=== PATIENT | male | born 1960 | race Caucasian/White ===

== ENCOUNTER 2017-12-22 11:47 | Emergency (ER) | payer MEDICARE ==
[~2017-12-22] VITALS: Ht 172.7 cm; Wt 75.0 kg
[2017-12-22] MEDS ORDERED: SODIUM CHLORIDE 0.9% 1,000 ML IV ONE (12:32)
[2017-12-22] MEDS ORDERED: LORAZEPAM 2MG/ML CPJ IV ONE (12:45)
[2017-12-22 12:51] LABS: BASOPHILS % 0.5 % (0.0-2.0); EOSINOPHILS % 0.8 % (0.0-5.0); HEMATOCRIT. 43.9 % (42.0-52.0); HEMOGLOBIN. 15.3 g/dL (14.0-18.0); LYMPHOCYTES % 19.2 % (20.0-50.0); MEAN CORPUSCULAR HEMOGLOBIN 30.9 pg (28.0-32.0); MEAN CORPUSCULAR VOLUME 88.8 fL (80.0-94.0); MEAN PLATELET VOLUME 7.9 fl (7.4-10.4); MONOCYTES % 4.5 % (2.0-8.0); PLATELET 228 x1000/uL (130-400); RED BLOOD CELL COUNT 4.94 mill/uL (4.7-6.1); RED CELL DISTRIBUTION WIDTH 13.4 % (11.6-14.6)
[2017-12-22 12:58] LABS: CHLORIDE 104 mEq/L (98-107)
[2017-12-22 12:59] LABS: PROTHROMBIN TIME 10.7 sec (9.4-11.6)
[2017-12-22 13:02] LABS: ETHANOL BLOOD < 10 mg/dL
[2017-12-22 13:07] LABS: CREATINE KINASE 66 IU/L (39-308)
[2017-12-22 14:19] LABS: CLARITY URINE CLEAR (CLEAR); COLOR URINE YELLOW (YELLOW); KETONES URINE NEGATIVE (NEGATIVE); LEUKOCYTE ESTERASE URINE NEGATIVE (NEGATIVE); NITRITE URINE NEGATIVE (NEGATIVE); OCCULT BLOOD URINE NEGATIVE (NEGATIVE); PH URINE 8.5 (4.5-8.0); PROTEIN URINE NEGATIVE (NEGATIVE); SPECIFIC GRAVITY URINE 1.007 (1.005-1.030); UROBILINOGEN URINE 0.2 E.U./dL (0.2-1.0)
[2017-12-22 14:33] LABS: *AMPHETAMINES SCREEN URINE NEGATIVE (NEGATIVE); *BARBITURATES SCREEN URINE NEGATIVE (NEGATIVE); *BENZODIAZEPINES SCREEN URINE NEGATIVE (NEGATIVE); *COCAINE SCREEN URINE NEGATIVE (NEGATIVE)
[2017-12-22 14:34] LABS: CANNABINOID URINE SCREEN NEGATIVE (NEGATIVE); METHADONE URINE SCREEN NEGATIVE (NEGATIVE); OPIATES URINE SCREEN NEGATIVE (NEGATIVE); PHENCYCLIDINE URINE SCREEN NEGATIVE (NEGATIVE)
[2017-12-23 13:56] VITALS: BP 135/93
== END 2017-12-23 14:34 ==
LOC: ER 12:04
DX: F32.9 Major depressive disorder, single episode, unspecified (principal); R53.1 Weakness; R53.83 Other fatigue; R20.0 Anesthesia of skin; R51 Headache; R06.02 Shortness of breath; R10.84 Generalized abdominal pain; F41.9 Anxiety disorder, unspecified; I25.10 Atherosclerotic heart disease of native coronary artery without angina pectoris; I10 Essential (primary) hypertension; I25.2 Old myocardial infarction; Z95.5 Presence of coronary angioplasty implant and graft
CPT/HCPCS: 36415; 70450; 71045; 80053; 80305; 81003; 82550; 83605; 84484; 85025; 85610; 93005; 96361; 96374; 99285; G0482; J2060; J7030

== ENCOUNTER 2021-08-16 10:21 | Inpatient (IN) | payer MEDICAID, MEDICARE ==
[~2021-08-16] VITALS: Ht 172.7 cm; Wt 71.2 kg
[2021-08-16] MEDS ORDERED: ASPIRIN 325MG EC TABLET PO NR (10:45)
[2021-08-16] MEDS ORDERED: ASPIRIN 325MG TABLET ONE (10:57)
[2021-08-16] MEDS ORDERED: MIDAZOLAM HCL 2 MG/2 ML VIAL ONE (10:59)
[2021-08-16] MEDS ORDERED: FENTANYL CITRATE/PF 50MCG/ML 2ML VIAL ONE (11:00)
[2021-08-16] MEDS ORDERED: VERAPAMIL HCL 2.5 MG/1 ML 2ML VIAL IV ONE (11:00)
[2021-08-16] MEDS ORDERED: LIDOCAINE HCL 1% 10 MG/ML 10ML VIAL ONE (11:00)
[2021-08-16] MEDS ORDERED: HEPARIN 1000 UNITS/ML 10ML ONE ×2 (11:00→11:57)
[2021-08-16] MEDS ORDERED: IODIXANOL 320MG/ML 100 ML BOTTLE IV ONE ×2 (11:01→11:41)
[2021-08-16] MEDS ORDERED: IOHEXOL-300 100 ML BOTTLE ONE ×2 (11:01→11:40)
[2021-08-16 11:03] LABS: BASOPHILS % 0.5 % (0.0-2.0); EOSINOPHILS % 0.6 % (0.0-5.0); HEMATOCRIT. 42.2 % (42.0-52.0); HEMOGLOBIN. 14.2 g/dL (14.0-18.0); LYMPHOCYTES % 16.8 % (20.0-50.0); MEAN CORPUSCULAR VOLUME 89.2 fL (80.0-94.0); MEAN PLATELET VOLUME 7.8 fl (7.4-10.4); MONOCYTES % 4.7 % (2.0-8.0); NEUTROPHILS % 77.4 % (40.0-76.0); PLATELET 212 x1000/uL (130-400); RED BLOOD CELL COUNT 4.73 mill/uL (4.7-6.1); RED CELL DISTRIBUTION WIDTH 13.8 % (11.6-14.6)
[2021-08-16 11:07] LABS: CHLORIDE 106 mEq/L (98-107)
[2021-08-16] MEDS ORDERED: CLOPIDOGREL 75MG TABLET ONE (12:03)
[2021-08-16] MEDS ORDERED: ATROPINE SULFATE 1MG/10ML SYR IV PRN (13:30)
[2021-08-16] MEDS ORDERED: ACETAMINOPHEN 325MG TABLET PO PRN ×2 (13:30→17:30)
[2021-08-16 13:57] VITALS: BP 102/60
[2021-08-16 14:00] VITALS: BP 100/65
[2021-08-16 16:00] VITALS: BP 125/60
[2021-08-16] MEDS ORDERED: DIPHENHYDRAMINE 50MG/ML VIAL IV PRN (17:30)
[2021-08-16] MEDS ORDERED: GUAIFENESIN 200MG/10ML SUGAR FREE UDC PO PRN (17:30)
[2021-08-16] MEDS ORDERED: ONDANSETRON HCL 4MG/2ML INJ IV PRN (17:30)
[2021-08-16] MEDS ORDERED: CLONIDINE 0.1MG TABLET PO PRN (17:30)
[2021-08-16] MEDS ORDERED: IPRATROPIUM/ALBUTEROL 0.5-3(2.5)MG/3ML NEB HHN PRN (17:30)
[2021-08-16] MEDS ORDERED: MORPHINE SULFATE 2 MG/ML CPJ (NOT FOR IM USE) IV PRN (17:30)
[2021-08-16] MEDS ORDERED: HYDRALAZINE 20MG/ML VIAL IV PRN (17:30)
[2021-08-16] MEDS ORDERED: DOCUSATE SODIUM 100MG CAPSULE PO PRN (17:30)
[2021-08-16] MEDS ORDERED: MAGNESIUM/ALUMINUM HYDROXIDE/SIMETHICONE 30ML UDC PO PRN (17:30)
[2021-08-16] MEDS ORDERED: LORAZEPAM 2MG/ML CPJ IV PRN (17:30)
[2021-08-16 17:52] VITALS: BP 105/68
[2021-08-16 20:00] VITALS: BP 95/63
[2021-08-16] MEDS: ATORVASTATIN CALCIUM 40MG TABLET PO SCH (20:30)
[2021-08-16] MEDS: SODIUM CHLORIDE 0.9% INJ 3ML FLUSH IVF SCH (21:36)
[2021-08-16 22:00] VITALS: BP 97/55
[2021-08-17] VITALS (13 sets, daily range): BP systolic 92–134; BP diastolic 61–85
[2021-08-17] MEDS: SODIUM CHLORIDE 0.9% INJ 3ML FLUSH IVF SCH ×3 (05:15→21:34)
[2021-08-17] MEDS: ASPIRIN 81MG TABLET PO SCH (08:14)
[2021-08-17] MEDS: CLOPIDOGREL 75MG TABLET PO SCH (08:14)
[2021-08-17 09:03] LABS: BASOPHILS % 0.3 % (0.0-2.0); EOSINOPHILS % 0.8 % (0.0-5.0); HEMOGLOBIN. 13.3 g/dL (14.0-18.0); MEAN CORPUSCULAR HEMOGLOBIN 30.8 pg (28.0-32.0); MEAN CORPUSCULAR VOLUME 90.3 fL (80.0-94.0); MEAN PLATELET VOLUME 8.3 fl (7.4-10.4); MONOCYTES % 5.3 % (2.0-8.0); NEUTROPHILS % 77.6 % (40.0-76.0); PLATELET 208 x1000/uL (130-400); RED BLOOD CELL COUNT 4.31 mill/uL (4.7-6.1); RED CELL DISTRIBUTION WIDTH 14.1 % (11.6-14.6)
[2021-08-17 09:09] LABS: CHLORIDE 107 mEq/L (98-107)
[2021-08-17] MEDS ORDERED: NALOXONE HCL 0.4MG/ML VIAL IV PRN (12:00)
[2021-08-17] MEDS: HYDROCODONE/ACETAMINOPHEN 5/325MG TABLET PO PRN (13:43)
[2021-08-17] MEDS: ATORVASTATIN CALCIUM 40MG TABLET PO SCH (21:31)
[2021-08-18] VITALS (12 sets, daily range): BP systolic 90–111; BP diastolic 49–74
[2021-08-18] MEDS: SODIUM CHLORIDE 0.9% INJ 3ML FLUSH IVF SCH ×3 (06:36→21:39)
[2021-08-18] MEDS: CLOPIDOGREL 75MG TABLET PO SCH (08:29)
[2021-08-18] MEDS: ASPIRIN 81MG TABLET PO SCH (08:29)
[2021-08-18] MEDS: ATORVASTATIN CALCIUM 40MG TABLET PO SCH (21:34)
[2021-08-19] VITALS (24 sets, daily range): BP systolic 94–127; BP diastolic 48–79
[2021-08-19] MEDS: SODIUM CHLORIDE 0.9% INJ 3ML FLUSH IVF SCH ×3 (05:50→21:18)
[2021-08-19 06:53] LABS: BASOPHILS % 0.5 % (0.0-2.0); EOSINOPHILS % 1.4 % (0.0-5.0); HEMATOCRIT. 42.8 % (42.0-52.0); HEMOGLOBIN. 14.7 g/dL (14.0-18.0); LYMPHOCYTES % 18.3 % (20.0-50.0); MEAN CORPUSCULAR HEMOGLOBIN 30.7 pg (28.0-32.0); MEAN CORPUSCULAR VOLUME 89.8 fL (80.0-94.0); MEAN PLATELET VOLUME 7.9 fl (7.4-10.4); MONOCYTES % 6.1 % (2.0-8.0); NEUTROPHILS % 73.7 % (40.0-76.0); PLATELET 245 x1000/uL (130-400); RED BLOOD CELL COUNT 4.77 mill/uL (4.7-6.1); RED CELL DISTRIBUTION WIDTH 13.8 % (11.6-14.6)
[2021-08-19 07:39] LABS: CHLORIDE 104 mEq/L (98-107)
[2021-08-19] MEDS ORDERED: LIDOCAINE HCL 1% 20ML VIAL (Pyxis) INJ ONE (08:49)
[2021-08-19] MEDS ORDERED: THROMBIN (BOVINE) 5000 UNITS/VIAL TOP ONE (08:50)
[2021-08-19] MEDS ORDERED: HEPARIN 100 UNITS/1 ML VIAL ONE (08:50)
[2021-08-19] MEDS ORDERED: BUPIVACAINE HCL/PF 0.5% (5MG/ML) 10ML ONE (08:51)
[2021-08-19] MEDS ORDERED: POLYMYXIN B SULFATE 500000 UNITS/VIAL ONE (08:52)
[2021-08-19] MEDS ORDERED: HEPARIN SODIUM 1,000 UNIT/1ML VIAL IV ONE (08:52)
[2021-08-19] MEDS ORDERED: FENTANYL CITRATE/PF 50MCG/ML 2ML VIAL ONE (12:28)
[2021-08-19] MEDS ORDERED: PROPOFOL 200MG/20ML VIAL IV ONE (12:28)
[2021-08-19] MEDS ORDERED: MIDAZOLAM HCL 2 MG/2 ML VIAL ONE (12:28)
[2021-08-19] MEDS ORDERED: MORPHINE SULFATE 2 MG/ML CPJ (NOT FOR IM USE) IV PRN (12:45)
[2021-08-19] MEDS ORDERED: LABETALOL 5MG/ML SYR 20 MG/4 ML SYRINGE IV PRN (13:15)
[2021-08-19] MEDS ORDERED: HYDROMORPHONE HCL/PF 2MG/ML CPJ IV PRN (13:15)
[2021-08-19] MEDS ORDERED: MEPERIDINE HCL/PF 25MG/ML CPJ IV PRN (13:15)
[2021-08-19] MEDS ORDERED: ONDANSETRON HCL 4MG/2ML INJ IV PRN (13:15)
[2021-08-19] MEDS ORDERED: BACITRACIN 15GM TUBE TOP ONE (13:17)
[2021-08-19] MEDS ORDERED: DEXAMETHASONE 4MG/ML 1ML VIAL ONE (13:28)
[2021-08-19] MEDS: ASPIRIN 81MG TABLET PO SCH (15:06)
[2021-08-19] MEDS: CLOPIDOGREL 75MG TABLET PO SCH (15:06)
[2021-08-19] MEDS: HYDROCODONE/ACETAMINOPHEN 5/325MG TABLET PO PRN (15:56)
[2021-08-19] MEDS: ATORVASTATIN CALCIUM 40MG TABLET PO SCH (21:18)
[2021-08-20] VITALS (15 sets, daily range): BP systolic 89–112; BP diastolic 58–70
[2021-08-20] MEDS: SODIUM CHLORIDE 0.9% INJ 3ML FLUSH IVF SCH ×2 (05:42→20:59)
[2021-08-20 07:41] LABS: BASOPHILS % 0.3 % (0.0-2.0); EOSINOPHILS % 0.2 % (0.0-5.0); HEMATOCRIT. 39.3 % (42.0-52.0); HEMOGLOBIN. 13.4 g/dL (14.0-18.0); LYMPHOCYTES % 12.8 % (20.0-50.0); MEAN CORPUSCULAR VOLUME 91.4 fL (80.0-94.0); MEAN PLATELET VOLUME 8.1 fl (7.4-10.4); NEUTROPHILS % 81.7 % (40.0-76.0); PLATELET 243 x1000/uL (130-400); RED CELL DISTRIBUTION WIDTH 13.7 % (11.6-14.6)
[2021-08-20 07:42] LABS: CHLORIDE 105 mEq/L (98-107)
[2021-08-20] MEDS: CLOPIDOGREL 75MG TABLET PO SCH (07:57)
[2021-08-20] MEDS: ASPIRIN 81MG TABLET PO SCH (07:57)
[2021-08-20] MEDS: ENOXAPARIN 40MG/0.4ML SYR SUBCUT SCH (07:58)
[2021-08-20] MEDS ORDERED: ASPI-1497 PO (16:31)
[2021-08-20] MEDS ORDERED: ATOR40TA70 PO (16:32)
[2021-08-20] MEDS ORDERED: CLOP75TA33 PO (16:32)
[2021-08-20] MEDS ORDERED: DIVA500T3 PO (17:52)
[2021-08-20] MEDS ORDERED: TRAZ-252 PO (17:53)
[2021-08-20] MEDS ORDERED: ESCI5SOL2 PO (17:54)
[2021-08-20] MEDS ORDERED: CARV3.1242 PO (17:54)
[2021-08-20] MEDS ORDERED: NON FORMULARY PATIENT HOME MED XX SCH (18:15)
[2021-08-20] MEDS: ESCITALOPRAM 5 MG PO SCH (20:06)
[2021-08-20] MEDS: ATORVASTATIN CALCIUM 40MG TABLET PO SCH (20:56)
[2021-08-20] MEDS: DIVALPROEX SODIUM 500MG DR TABLET PO SCH (20:57)
[2021-08-20] MEDS ORDERED: TRAZODONE HCL 50MG TABLET PO SCH (21:00)
[2021-08-21] VITALS (8 sets, daily range): BP systolic 94–106; BP diastolic 57–68
[2021-08-21] MEDS: SODIUM CHLORIDE 0.9% INJ 3ML FLUSH IVF SCH ×2 (06:25→21:35)
[2021-08-21] MEDS: ASPIRIN 81MG TABLET PO SCH (08:07)
[2021-08-21] MEDS: CLOPIDOGREL 75MG TABLET PO SCH (08:07)
[2021-08-21] MEDS: DIVALPROEX SODIUM 500MG DR TABLET PO SCH ×2 (08:07→21:37)
[2021-08-21] MEDS: ENOXAPARIN 40MG/0.4ML SYR SUBCUT SCH (08:08)
[2021-08-21] MEDS: ESCITALOPRAM 5 MG PO SCH (08:08)
[2021-08-21] MEDS ORDERED: CITALOPRAM HYDROBROMIDE 10MG TABLET PO SCH (10:30)
[2021-08-21] MEDS: TRAZODONE HCL 50MG TABLET PO SCH (21:36)
[2021-08-21] MEDS: ATORVASTATIN CALCIUM 40MG TABLET PO SCH (21:36)
[2021-08-22] VITALS (7 sets, daily range): BP systolic 94–118; BP diastolic 60–79
[2021-08-22] MEDS: SODIUM CHLORIDE 0.9% INJ 3ML FLUSH IVF SCH ×3 (06:33→22:17)
[2021-08-22] MEDS: DIVALPROEX SODIUM 500MG DR TABLET PO SCH ×2 (09:54→20:40)
[2021-08-22] MEDS: CLOPIDOGREL 75MG TABLET PO SCH (09:54)
[2021-08-22] MEDS: ASPIRIN 81MG TABLET PO SCH (09:54)
[2021-08-22] MEDS: ENOXAPARIN 40MG/0.4ML SYR SUBCUT SCH (09:55)
[2021-08-22] MEDS: ESCITALOPRAM 5 MG PO SCH (09:55)
[2021-08-22] MEDS: ATORVASTATIN CALCIUM 40MG TABLET PO SCH (20:40)
[2021-08-22] MEDS: TRAZODONE HCL 50MG TABLET PO SCH (20:40)
[2021-08-23] VITALS: BP 94/68
[2021-08-23 04:00] VITALS: BP 105/63
[2021-08-23] MEDS: SODIUM CHLORIDE 0.9% INJ 3ML FLUSH IVF SCH ×2 (05:38→21:30)
[2021-08-23 08:00] VITALS: BP 99/68
[2021-08-23] MEDS: DIVALPROEX SODIUM 500MG DR TABLET PO SCH ×2 (10:10→21:30)
[2021-08-23] MEDS: ENOXAPARIN 40MG/0.4ML SYR SUBCUT SCH (10:10)
[2021-08-23] MEDS: ASPIRIN 81MG TABLET PO SCH (10:10)
[2021-08-23] MEDS: CLOPIDOGREL 75MG TABLET PO SCH (10:10)
[2021-08-23] MEDS: ESCITALOPRAM 5 MG PO SCH (10:10)
[2021-08-23 12:00] VITALS: BP 104/64
[2021-08-23 16:00] VITALS: BP 108/66
[2021-08-23 20:00] VITALS: BP 104/61
[2021-08-23] MEDS: ATORVASTATIN CALCIUM 40MG TABLET PO SCH (21:30)
[2021-08-23] MEDS: TRAZODONE HCL 50MG TABLET PO SCH (21:30)
[2021-08-24] VITALS (7 sets, daily range): BP systolic 93–102; BP diastolic 57–62
[2021-08-24] MEDS: SODIUM CHLORIDE 0.9% INJ 3ML FLUSH IVF SCH ×3 (05:32→20:46)
[2021-08-24] MEDS: DIVALPROEX SODIUM 500MG DR TABLET PO SCH ×2 (08:22→20:46)
[2021-08-24] MEDS: ESCITALOPRAM 5 MG PO SCH (08:22)
[2021-08-24] MEDS: ASPIRIN 81MG TABLET PO SCH (08:22)
[2021-08-24] MEDS: CLOPIDOGREL 75MG TABLET PO SCH (08:22)
[2021-08-24] MEDS: ENOXAPARIN 40MG/0.4ML SYR SUBCUT SCH (09:36)
[2021-08-24] MEDS: ATORVASTATIN CALCIUM 40MG TABLET PO SCH (20:46)
[2021-08-24] MEDS: TRAZODONE HCL 50MG TABLET PO SCH (20:46)
[2021-08-25] VITALS: BP 98/67
[2021-08-25 04:00] VITALS: BP 108/68
[2021-08-25] MEDS: SODIUM CHLORIDE 0.9% INJ 3ML FLUSH IVF SCH ×3 (06:38→21:21)
[2021-08-25 08:00] VITALS: BP 105/64
[2021-08-25] MEDS: DIVALPROEX SODIUM 500MG DR TABLET PO SCH ×2 (08:28→21:21)
[2021-08-25] MEDS: CLOPIDOGREL 75MG TABLET PO SCH (08:28)
[2021-08-25] MEDS: ESCITALOPRAM 5 MG PO SCH (08:28)
[2021-08-25] MEDS: ASPIRIN 81MG TABLET PO SCH (08:28)
[2021-08-25] MEDS: ENOXAPARIN 40MG/0.4ML SYR SUBCUT SCH (08:28)
[2021-08-25 12:00] VITALS: BP 103/71
[2021-08-25 16:00] VITALS: BP 100/67
[2021-08-25 20:00] VITALS: BP 100/58
[2021-08-25] MEDS: ATORVASTATIN CALCIUM 40MG TABLET PO SCH (21:21)
[2021-08-25] MEDS: TRAZODONE HCL 50MG TABLET PO SCH (21:21)
[2021-08-26] VITALS: BP 95/65
[2021-08-26 04:00] VITALS: BP 103/64
[2021-08-26] MEDS: SODIUM CHLORIDE 0.9% INJ 3ML FLUSH IVF SCH ×3 (06:00→21:16)
[2021-08-26 07:44] VITALS: BP 100/64
[2021-08-26] MEDS: DIVALPROEX SODIUM 500MG DR TABLET PO SCH ×2 (08:17→21:16)
[2021-08-26] MEDS: ENOXAPARIN 40MG/0.4ML SYR SUBCUT SCH (08:17)
[2021-08-26] MEDS: CLOPIDOGREL 75MG TABLET PO SCH (08:17)
[2021-08-26] MEDS: ASPIRIN 81MG TABLET PO SCH (08:17)
[2021-08-26] MEDS: ESCITALOPRAM 5 MG PO SCH (08:48)
[2021-08-26 11:31] VITALS: BP 110/70
[2021-08-26 17:20] VITALS: BP 103/64
[2021-08-26 20:00] VITALS: BP 105/68
[2021-08-26] MEDS: TRAZODONE HCL 50MG TABLET PO SCH (21:16)
[2021-08-26] MEDS: ATORVASTATIN CALCIUM 40MG TABLET PO SCH (21:16)
[2021-08-27] VITALS: BP 97/59
[2021-08-27 04:00] VITALS: BP 116/65
[2021-08-27] MEDS: SODIUM CHLORIDE 0.9% INJ 3ML FLUSH IVF SCH ×2 (06:31→12:17)
[2021-08-27 06:41] LABS: BASOPHILS % 0.6 % (0.0-2.0); HEMATOCRIT. 37.1 % (42.0-52.0); HEMOGLOBIN. 12.9 g/dL (14.0-18.0); LYMPHOCYTES % 23.4 % (20.0-50.0); MEAN CORPUSCULAR HEMOGLOBIN 31.4 pg (28.0-32.0); MEAN CORPUSCULAR VOLUME 90.5 fL (80.0-94.0); MEAN PLATELET VOLUME 8.4 fl (7.4-10.4); MONOCYTES % 8.4 % (2.0-8.0); NEUTROPHILS % 63.6 % (40.0-76.0); PLATELET 291 x1000/uL (130-400); RED CELL DISTRIBUTION WIDTH 13.8 % (11.6-14.6)
[2021-08-27 08:00] VITALS: BP 111/67
[2021-08-27 08:20] LABS: CHLORIDE 106 mEq/L (98-107)
[2021-08-27] MEDS: DIVALPROEX SODIUM 500MG DR TABLET PO SCH ×2 (09:54→21:08)
[2021-08-27] MEDS: ASPIRIN 81MG TABLET PO SCH (09:54)
[2021-08-27] MEDS: CLOPIDOGREL 75MG TABLET PO SCH (09:54)
[2021-08-27] MEDS: ESCITALOPRAM 5 MG PO SCH (09:55)
[2021-08-27] MEDS: ENOXAPARIN 40MG/0.4ML SYR SUBCUT SCH (09:55)
[2021-08-27 12:00] VITALS: BP 101/59
[2021-08-27] MEDS ORDERED: SODIUM POLYSTYRENE SULFONATE 15 G/60 ML BOT PO SCH (15:00)
[2021-08-27 16:00] VITALS: BP 110/65
[2021-08-27 20:00] VITALS: BP 101/66
[2021-08-27] MEDS: ATORVASTATIN CALCIUM 40MG TABLET PO SCH (21:08)
[2021-08-27] MEDS: TRAZODONE HCL 50MG TABLET PO SCH (21:08)
[2021-08-28] VITALS (7 sets, daily range): BP systolic 100–113; BP diastolic 63–70
[2021-08-28] MEDS: ASPIRIN 81MG TABLET PO SCH (08:57)
[2021-08-28] MEDS: ENOXAPARIN 40MG/0.4ML SYR SUBCUT SCH (08:57)
[2021-08-28] MEDS: CLOPIDOGREL 75MG TABLET PO SCH (08:57)
[2021-08-28] MEDS: DIVALPROEX SODIUM 500MG DR TABLET PO SCH ×2 (08:57→21:12)
[2021-08-28] MEDS: CITALOPRAM HYDROBROMIDE 10MG TABLET PO SCH (12:04)
[2021-08-28] MEDS: SODIUM CHLORIDE 0.9% INJ 3ML FLUSH IVF SCH ×2 (14:00→21:13)
[2021-08-28] MEDS ORDERED: HYDRALAZINE 10 MG in SODIUM CHLORIDE 0.9% 49.5 ML IV PRN (15:00)
[2021-08-28] MEDS: ATORVASTATIN CALCIUM 40MG TABLET PO SCH (21:12)
[2021-08-28] MEDS: TRAZODONE HCL 50MG TABLET PO SCH (21:12)
[2021-08-29] VITALS: BP 121/70
[2021-08-29 04:00] VITALS: BP 124/80
[2021-08-29] MEDS: SODIUM CHLORIDE 0.9% INJ 3ML FLUSH IVF SCH ×3 (05:53→21:43)
[2021-08-29 08:00] VITALS: BP 119/70
[2021-08-29] MEDS ORDERED: SODIUM POLYSTYRENE SULFONATE 15 G/60 ML BOT PO NR ×2 (08:45→10:00)
[2021-08-29] MEDS: CITALOPRAM HYDROBROMIDE 10MG TABLET PO SCH (09:02)
[2021-08-29] MEDS: ASPIRIN 81MG TABLET PO SCH (09:02)
[2021-08-29] MEDS: DIVALPROEX SODIUM 500MG DR TABLET PO SCH ×2 (09:02→21:43)
[2021-08-29] MEDS: ENOXAPARIN 40MG/0.4ML SYR SUBCUT SCH (09:03)
[2021-08-29] MEDS: CLOPIDOGREL 75MG TABLET PO SCH (09:03)
[2021-08-29 12:00] VITALS: BP 103/61
[2021-08-29 16:00] VITALS: BP 103/63
[2021-08-29 20:00] VITALS: BP 110/61
[2021-08-29] MEDS: TRAZODONE HCL 50MG TABLET PO SCH (21:43)
[2021-08-29] MEDS: ATORVASTATIN CALCIUM 40MG TABLET PO SCH (21:43)
[2021-08-30] VITALS: BP 115/61
[2021-08-30 04:00] VITALS: BP 118/72
[2021-08-30] MEDS: SODIUM CHLORIDE 0.9% INJ 3ML FLUSH IVF SCH ×3 (05:06→21:59)
[2021-08-30 08:00] VITALS: BP 107/66
[2021-08-30] MEDS: CLOPIDOGREL 75MG TABLET PO SCH (08:56)
[2021-08-30] MEDS: ENOXAPARIN 40MG/0.4ML SYR SUBCUT SCH (08:56)
[2021-08-30] MEDS: CITALOPRAM HYDROBROMIDE 10MG TABLET PO SCH (08:56)
[2021-08-30] MEDS: DIVALPROEX SODIUM 500MG DR TABLET PO SCH ×2 (08:56→21:58)
[2021-08-30] MEDS: ASPIRIN 81MG TABLET PO SCH (08:56)
[2021-08-30] MEDS: ARIPIPRAZOLE 2MG TABLET PO SCH (09:00)
[2021-08-30 12:00] VITALS: BP 119/71
[2021-08-30 16:00] VITALS: BP 105/65
[2021-08-30 19:10] LABS: BASOPHILS % 0.7 % (0.0-2.0); EOSINOPHILS % 1.6 % (0.0-5.0); HEMATOCRIT. 36.3 % (42.0-52.0); HEMOGLOBIN. 12.8 g/dL (14.0-18.0); LYMPHOCYTES % 24.8 % (20.0-50.0); MEAN CORPUSCULAR HEMOGLOBIN 31.3 pg (28.0-32.0); MEAN CORPUSCULAR VOLUME 88.6 fL (80.0-94.0); MEAN PLATELET VOLUME 7.8 fl (7.4-10.4); MONOCYTES % 5.4 % (2.0-8.0); NEUTROPHILS % 67.5 % (40.0-76.0); PLATELET 275 x1000/uL (130-400); RED CELL DISTRIBUTION WIDTH 13.8 % (11.6-14.6)
[2021-08-30 19:24] LABS: CHLORIDE 106 mEq/L (98-107)
[2021-08-30 19:51] LABS: CLARITY URINE CLOUDY (CLEAR); COLOR URINE YELLOW (YELLOW); KETONES URINE TRACE (NEGATIVE); LEUKOCYTE ESTERASE URINE NEGATIVE (NEGATIVE); NITRITE URINE NEGATIVE (NEGATIVE); OCCULT BLOOD URINE NEGATIVE (NEGATIVE); PH URINE 7.5 (4.5-8.0); PROTEIN URINE NEGATIVE (NEGATIVE); SPECIFIC GRAVITY URINE 1.021 (1.005-1.030)
[2021-08-30 20:00] VITALS: BP 118/71
[2021-08-30 20:14] LABS: *AMPHETAMINES SCREEN URINE NEGATIVE (NEGATIVE); *BARBITURATES SCREEN URINE NEGATIVE (NEGATIVE); *COCAINE SCREEN URINE NEGATIVE (NEGATIVE)
[2021-08-30 20:15] LABS: CANNABINOID URINE SCREEN NEGATIVE (NEGATIVE); METHADONE URINE SCREEN NEGATIVE (NEGATIVE); OPIATES URINE SCREEN NEGATIVE (NEGATIVE); PHENCYCLIDINE URINE SCREEN NEGATIVE (NEGATIVE)
[2021-08-30 20:17] LABS: *BENZODIAZEPINES SCREEN URINE NEGATIVE (NEGATIVE)
[2021-08-30] MEDS: ATORVASTATIN CALCIUM 40MG TABLET PO SCH (21:58)
[2021-08-30] MEDS: TRAZODONE HCL 50MG TABLET PO SCH (21:58)
[2021-08-31] MEDS: SODIUM CHLORIDE 0.9% INJ 3ML FLUSH IVF SCH ×3 (05:21→22:00)
[2021-08-31 08:00] VITALS: BP 112/63
[2021-08-31] MEDS: CITALOPRAM HYDROBROMIDE 10MG TABLET PO SCH (08:32)
[2021-08-31] MEDS: CLOPIDOGREL 75MG TABLET PO SCH (08:32)
[2021-08-31] MEDS: ENOXAPARIN 40MG/0.4ML SYR SUBCUT SCH (08:32)
[2021-08-31] MEDS: ARIPIPRAZOLE 2MG TABLET PO SCH (08:32)
[2021-08-31] MEDS: DIVALPROEX SODIUM 500MG DR TABLET PO SCH ×2 (08:32→20:13)
[2021-08-31] MEDS: ASPIRIN 81MG TABLET PO SCH (08:32)
[2021-08-31 12:00] VITALS: BP 107/66
[2021-08-31 16:00] VITALS: BP 111/61
[2021-08-31 20:09] VITALS: BP 106/63
[2021-08-31] MEDS: ATORVASTATIN CALCIUM 40MG TABLET PO SCH (20:13)
[2021-08-31] MEDS: TRAZODONE HCL 50MG TABLET PO SCH (20:13)
[2021-09-01 00:08] VITALS: BP 104/59
[2021-09-01 04:47] VITALS: BP 104/53
[2021-09-01] MEDS: SODIUM CHLORIDE 0.9% INJ 3ML FLUSH IVF SCH ×3 (05:55→22:00)
[2021-09-01 08:00] VITALS: BP 104/62
[2021-09-01] MEDS: ASPIRIN 81MG TABLET PO SCH (09:15)
[2021-09-01] MEDS: DIVALPROEX SODIUM 500MG DR TABLET PO SCH ×2 (09:16→20:22)
[2021-09-01] MEDS: CITALOPRAM HYDROBROMIDE 10MG TABLET PO SCH (09:16)
[2021-09-01] MEDS: ENOXAPARIN 40MG/0.4ML SYR SUBCUT SCH (09:16)
[2021-09-01] MEDS: CLOPIDOGREL 75MG TABLET PO SCH (09:17)
[2021-09-01] MEDS: ARIPIPRAZOLE 2MG TABLET PO SCH (09:17)
[2021-09-01 12:00] VITALS: BP 98/60
[2021-09-01 16:00] VITALS: BP 98/60
[2021-09-01 19:57] VITALS: BP 89/56
[2021-09-01] MEDS: TRAZODONE HCL 50MG TABLET PO SCH (20:22)
[2021-09-01] MEDS: ATORVASTATIN CALCIUM 40MG TABLET PO SCH (20:22)
[2021-09-02 04:00] VITALS: BP 106/56
[2021-09-02] MEDS: SODIUM CHLORIDE 0.9% INJ 3ML FLUSH IVF SCH ×2 (05:15→14:00)
[2021-09-02 08:00] VITALS: BP 117/62
[2021-09-02] MEDS: ENOXAPARIN 40MG/0.4ML SYR SUBCUT SCH (09:16)
[2021-09-02] MEDS: ASPIRIN 81MG TABLET PO SCH (09:17)
[2021-09-02] MEDS: CITALOPRAM HYDROBROMIDE 10MG TABLET PO SCH (09:18)
[2021-09-02] MEDS: DIVALPROEX SODIUM 500MG DR TABLET PO SCH ×2 (09:18→21:31)
[2021-09-02] MEDS: ARIPIPRAZOLE 2MG TABLET PO SCH (09:20)
[2021-09-02 12:00] VITALS: BP 112/67
[2021-09-02 16:00] VITALS: BP 108/64
[2021-09-02 20:00] VITALS: BP 101/54
[2021-09-02] MEDS: TRAZODONE HCL 50MG TABLET PO SCH (21:30)
[2021-09-02] MEDS: ATORVASTATIN CALCIUM 40MG TABLET PO SCH (21:31)
[2021-09-03] VITALS: BP 124/71
[2021-09-03 04:00] VITALS: BP 117/68
[2021-09-03 08:00] VITALS: BP 100/62
[2021-09-03 09:04] LABS: BASOPHILS % 0.6 % (0.0-2.0); EOSINOPHILS % 1.5 % (0.0-5.0); HEMATOCRIT. 39.9 % (42.0-52.0); HEMOGLOBIN. 13.5 g/dL (14.0-18.0); MEAN CORPUSCULAR HEMOGLOBIN 30.7 pg (28.0-32.0); MEAN PLATELET VOLUME 7.7 fl (7.4-10.4); NEUTROPHILS % 71.9 % (40.0-76.0); PLATELET 242 x1000/uL (130-400); RED BLOOD CELL COUNT 4.38 mill/uL (4.7-6.1); RED CELL DISTRIBUTION WIDTH 13.8 % (11.6-14.6)
[2021-09-03 09:13] LABS: CHLORIDE 105 mEq/L (98-107)
[2021-09-03] MEDS: ASPIRIN 81MG TABLET PO SCH (09:18)
[2021-09-03] MEDS: ENOXAPARIN 40MG/0.4ML SYR SUBCUT SCH (09:18)
[2021-09-03] MEDS: DIVALPROEX SODIUM 500MG DR TABLET PO SCH ×2 (09:19→20:08)
[2021-09-03] MEDS: CITALOPRAM HYDROBROMIDE 10MG TABLET PO SCH (09:19)
[2021-09-03] MEDS: ARIPIPRAZOLE 2MG TABLET PO SCH (09:19)
[2021-09-03] MEDS: CLOPIDOGREL 75MG TABLET PO SCH (09:28)
[2021-09-03 12:00] VITALS: BP 106/65
[2021-09-03] MEDS: SODIUM CHLORIDE 0.9% INJ 3ML FLUSH IVF SCH ×2 (14:38→22:00)
[2021-09-03 16:00] VITALS: BP 108/60
[2021-09-03 20:00] VITALS: BP 97/60
[2021-09-03] MEDS: TRAZODONE HCL 50MG TABLET PO SCH (20:08)
[2021-09-03] MEDS: ATORVASTATIN CALCIUM 40MG TABLET PO SCH (20:08)
[2021-09-04] VITALS: BP 91/56
[2021-09-04 04:00] VITALS: BP 111/76
[2021-09-04] MEDS: SODIUM CHLORIDE 0.9% INJ 3ML FLUSH IVF SCH (06:22)
[2021-09-04 08:00] VITALS: BP 106/58
[2021-09-04 08:07] LABS: CHLORIDE 106 mEq/L (98-107)
[2021-09-04 08:21] LABS: BASOPHILS % 0.7 % (0.0-2.0); EOSINOPHILS % 2.1 % (0.0-5.0); HEMATOCRIT. 39.2 % (42.0-52.0); HEMOGLOBIN. 13.6 g/dL (14.0-18.0); MEAN CORPUSCULAR HEMOGLOBIN 31.2 pg (28.0-32.0); MEAN CORPUSCULAR VOLUME 90.2 fL (80.0-94.0); MEAN PLATELET VOLUME 8.4 fl (7.4-10.4); MONOCYTES % 6.1 % (2.0-8.0); NEUTROPHILS % 63.1 % (40.0-76.0); PLATELET 250 x1000/uL (130-400); RED BLOOD CELL COUNT 4.35 mill/uL (4.7-6.1); RED CELL DISTRIBUTION WIDTH 13.7 % (11.6-14.6)
[2021-09-04] MEDS: ENOXAPARIN 40MG/0.4ML SYR SUBCUT SCH (08:47)
[2021-09-04] MEDS: ASPIRIN 81MG TABLET PO SCH (08:47)
[2021-09-04] MEDS: CLOPIDOGREL 75MG TABLET PO SCH (08:48)
[2021-09-04] MEDS: DIVALPROEX SODIUM 500MG DR TABLET PO SCH (08:48)
[2021-09-04] MEDS ORDERED: ARIPIPRAZOLE 5MG TABLET PO SCH (09:00)
[2021-09-04] MEDS ORDERED: CITALOPRAM HYDROBROMIDE 10MG TABLET PO SCH (09:00)
[2021-09-04 12:00] VITALS: BP 99/57
[2021-09-04 12:30] VITALS: BP 99/57
[2021-09-04] MEDS ORDERED: MIRTAZAPINE 15MG TABLET PO SCH (21:00)
== END 2021-09-04 15:25 | disposition home or self-care (01) | DRG 181 ==
LOC: ER 10:21 → 3WST 12:42 → EDBEDREQTM 12:47 → EDBEDREQ 12:47 → 3WST 19:35 → 6EST 08-26 09:36
PROVIDERS: ADMIT Internal Medicine; ATTEND Internal Medicine
PROC: B41GYZZ Fluoroscopy of Left Lower Extremity Arteries using Other Contrast (ICD-10-PCS; 2021-08-16)
PROC: 4A023N7 Measurement of Cardiac Sampling and Pressure, Left Heart, Percutaneous Approach (ICD-10-PCS; 2021-08-16)
PROC: B211YZZ Fluoroscopy of Multiple Coronary Arteries using Other Contrast (ICD-10-PCS; 2021-08-16)
PROC: B218YZZ Fluoroscopy of Left Internal Mammary Bypass Graft using Other Contrast (ICD-10-PCS; 2021-08-16)
PROC: B213YZZ Fluoroscopy of Multiple Coronary Artery Bypass Grafts using Other Contrast (ICD-10-PCS; 2021-08-16)
PROC: B41FYZZ Fluoroscopy of Right Lower Extremity Arteries using Other Contrast (ICD-10-PCS; 2021-08-16)
PROC: 03JY3ZZ Inspection of Upper Artery, Percutaneous Approach (ICD-10-PCS; 2021-08-16)
PROC: 04CM0ZZ Extirpation of Matter from Right Popliteal Artery, Open Approach (ICD-10-PCS; principal; 2021-08-19)
DX: I21.09 ST elevation (STEMI) myocardial infarction involving other coronary artery of anterior wall (principal); I74.5 Embolism and thrombosis of iliac artery; R45.851 Suicidal ideations; I82.431 Acute embolism and thrombosis of right popliteal vein; I50.22 Chronic systolic (congestive) heart failure; I11.0 Hypertensive heart disease with heart failure; I25.10 Atherosclerotic heart disease of native coronary artery without angina pectoris; F31.60 Bipolar disorder, current episode mixed, unspecified; Z20.822 Contact with and (suspected) exposure to COVID-19; F10.10 Alcohol abuse, uncomplicated; Z95.1 Presence of aortocoronary bypass graft; Z79.899 Other long term (current) drug therapy; Z56.0 Unemployment, unspecified; Z79.82 Long term (current) use of aspirin
CPT/HCPCS: 36415; 71045; 80048; 80053; 80305; 81003; 82962; 83880; 84484; 85025; 85347; 86850; 86900; 87426; 88304; 92941; 93005; 93306; 93459; 93922; 99291; C1726; C1758; C1760; C1769; C1884; C1887; C1893; J1100; J1642; J1644; J1650; J2250; J2405; J2704; J3010; J3490; J7030; Q9967; U0003; U0005; C1725

== ENCOUNTER 2021-09-20 17:03 | Inpatient (IN) | payer MEDICAID ==
[~2021-09-20] VITALS: Ht 172.7 cm; Wt 70.3 kg
[~2021-09-20 17:03] MED LIST: ASPI-1497 PO; ATOR40TA70 PO; CARV3.1242 PO; CLOP75TA33 PO; DIVA500T3 PO; ESCI5SOL2 PO; TRAZ-252 PO
[2021-09-20 18:57] LABS: CHLORIDE 106 mEq/L (98-107)
[2021-09-20] MEDS ORDERED: ASPIRIN 325MG TABLET PO ONE (19:00)
[2021-09-20] MEDS ORDERED: MORPHINE SULFATE 4 MG/ML CPJ (NOT FOR IM USE) IV ONE (19:00)
[2021-09-20 20:19] LABS: HEMOGLOBIN. 13.4 g/dL (14.0-18.0); MEAN CORPUSCULAR HEMOGLOBIN 30.1 pg (28.0-32.0); MEAN CORPUSCULAR VOLUME 90.2 fL (80.0-94.0); MEAN PLATELET VOLUME 8.7 fl (7.4-10.4); PLATELET 164 x1000/uL (130-400); RED BLOOD CELL COUNT 4.44 mill/uL (4.7-6.1); RED CELL DISTRIBUTION WIDTH 13.9 % (11.6-14.6)
[2021-09-20 22:06] LABS: PLATELET ESTIMATE NORMAL
[2021-09-20] MEDS ORDERED: ONDANSETRON HCL 4MG/2ML INJ IV PRN (23:30)
[2021-09-20] MEDS ORDERED: DIPHENHYDRAMINE 50MG/ML VIAL IV PRN (23:30)
[2021-09-20] MEDS ORDERED: HYDROCODONE/ACETAMINOPHEN 5/325MG TABLET PO PRN (23:30)
[2021-09-20] MEDS ORDERED: IPRATROPIUM/ALBUTEROL 0.5-3(2.5)MG/3ML NEB HHN PRN (23:30)
[2021-09-20] MEDS ORDERED: DOCUSATE SODIUM 100MG CAPSULE PO PRN (23:30)
[2021-09-20] MEDS ORDERED: LORAZEPAM 2MG/ML CPJ IV PRN (23:30)
[2021-09-20] MEDS ORDERED: MAGNESIUM/ALUMINUM HYDROXIDE/SIMETHICONE 30ML UDC PO PRN (23:30)
[2021-09-20] MEDS ORDERED: GUAIFENESIN 200MG/10ML SUGAR FREE UDC PO PRN (23:30)
[2021-09-20] MEDS ORDERED: MORPHINE SULFATE 2 MG/ML CPJ (NOT FOR IM USE) IV PRN (23:30)
[2021-09-20] MEDS ORDERED: CLONIDINE 0.1MG TABLET PO PRN (23:30)
[2021-09-20] MEDS ORDERED: NALOXONE HCL 0.4MG/ML VIAL IV PRN (23:45)
[2021-09-21] MEDS: SODIUM CHLORIDE 0.9% INJ 3ML FLUSH IVF SCH ×3 (05:49→21:23)
[2021-09-21 09:00] VITALS: BP 100/60
[2021-09-21] MEDS: ASPIRIN 81MG EC TABLET PO SCH (10:09)
[2021-09-21] MEDS: CLOPIDOGREL 75MG TABLET PO SCH (10:15)
[2021-09-21 12:00] VITALS: BP 102/63
[2021-09-21 14:05] VITALS: BP 99/62
[2021-09-21 16:00] VITALS: BP 99/62
[2021-09-21 17:05] LABS: BASOPHILS % 0.8 % (0.0-2.0); HEMATOCRIT. 43.1 % (42.0-52.0); HEMOGLOBIN. 14.4 g/dL (14.0-18.0); LYMPHOCYTES % 22.9 % (20.0-50.0); MEAN CORPUSCULAR HEMOGLOBIN 30.2 pg (28.0-32.0); MEAN CORPUSCULAR VOLUME 90.3 fL (80.0-94.0); MEAN PLATELET VOLUME 8.4 fl (7.4-10.4); MONOCYTES % 4.1 % (2.0-8.0); NEUTROPHILS % 70.2 % (40.0-76.0); PLATELET 189 x1000/uL (130-400); RED BLOOD CELL COUNT 4.78 mill/uL (4.7-6.1); RED CELL DISTRIBUTION WIDTH 14.1 % (11.6-14.6)
[2021-09-21 17:29] LABS: CHLORIDE 105 mEq/L (98-107)
[2021-09-21 17:38] LABS: LDL CHOLESTEROL 149 mg/dL (5-100); T4 FREE 0.86 ng/dL (0.76-1.46)
[2021-09-21 17:39] LABS: HDL CHOLESTEROL 49 mg/dL (40-59)
[2021-09-21 17:43] LABS: CREATINE KINASE 28 IU/L (39-308); CREATINE KINASE MB FRACTION < 1.0 ng/mL (0.5-3.6)
[2021-09-21 20:00] VITALS: BP 94/63
[2021-09-22] VITALS: BP 98/61
[2021-09-22] MEDS: SODIUM CHLORIDE 0.9% INJ 3ML FLUSH IVF SCH ×3 (06:00→20:43)
[2021-09-22 08:00] VITALS: BP 87/59
[2021-09-22] MEDS: ASPIRIN 81MG EC TABLET PO SCH (08:38)
[2021-09-22] MEDS: CLOPIDOGREL 75MG TABLET PO SCH (08:38)
[2021-09-22] MEDS ORDERED: REGADENOSON 0.4 MG/5 ML IV ONE (10:30)
[2021-09-22 12:00] VITALS: BP 93/55
[2021-09-22] MEDS ORDERED: MEDICATION NOT ON FORMULARY EA (Escitalopram Oxalate 5 MG) PO SCH (13:30)
[2021-09-22] MEDS: DIVALPROEX SODIUM 500MG DR TABLET PO SCH (15:34)
[2021-09-22] MEDS: CITALOPRAM HYDROBROMIDE 10MG TABLET PO SCH (15:34)
[2021-09-22 16:00] VITALS: BP 100/64
[2021-09-22] MEDS: ACETAMINOPHEN 325MG TABLET PO PRN ×2 (16:03→23:54)
[2021-09-22] MEDS ORDERED: CARVEDILOL 3.125 MG TABLET PO SCH (17:00)
[2021-09-22 20:00] VITALS: BP 102/69
[2021-09-22] MEDS: ATORVASTATIN CALCIUM 40MG TABLET PO SCH (20:31)
[2021-09-22] MEDS: TRAZODONE HCL 50MG TABLET PO SCH (20:31)
[2021-09-22] MEDS: ENOXAPARIN 80MG/0.8ML SYR SUBCUT SCH (20:42)
[2021-09-22] MEDS ORDERED: MEDICATION NOT ON FORMULARY EA (Trazodone Hcl 100 MG) PO SCH (21:00)
[2021-09-23] VITALS: BP 96/59
[2021-09-23 04:00] VITALS: BP 95/59
[2021-09-23] MEDS: SODIUM CHLORIDE 0.9% INJ 3ML FLUSH IVF SCH ×3 (06:31→21:54)
[2021-09-23 08:00] VITALS: BP 95/60
[2021-09-23] MEDS: ENOXAPARIN 80MG/0.8ML SYR SUBCUT SCH ×2 (11:50→21:49)
[2021-09-23] MEDS: METOPROLOL TARTRATE 25MG TABLET PO SCH ×2 (11:53→21:00)
[2021-09-23 12:00] VITALS: BP 96/62
[2021-09-23 16:00] VITALS: BP 98/68
[2021-09-23] MEDS: DIVALPROEX SODIUM 500MG DR TABLET PO SCH ×2 (16:18→17:00)
[2021-09-23] MEDS: CLOPIDOGREL 75MG TABLET PO SCH (16:18)
[2021-09-23] MEDS: CITALOPRAM HYDROBROMIDE 10MG TABLET PO SCH (16:18)
[2021-09-23] MEDS: LEVOFLOXACIN 500MG PREMIX 100 ML IV SCH (16:19)
[2021-09-23 17:24] LABS: BASOPHILS % 0.7 % (0.0-2.0); EOSINOPHILS % 0.1 % (0.0-5.0); HEMATOCRIT. 40.8 % (42.0-52.0); HEMOGLOBIN. 14.2 g/dL (14.0-18.0); LYMPHOCYTES % 32.3 % (20.0-50.0); MEAN CORPUSCULAR HEMOGLOBIN 31.2 pg (28.0-32.0); MEAN CORPUSCULAR VOLUME 89.5 fL (80.0-94.0); MEAN PLATELET VOLUME 8.2 fl (7.4-10.4); MONOCYTES % 6.4 % (2.0-8.0); NEUTROPHILS % 60.5 % (40.0-76.0); PLATELET 165 x1000/uL (130-400); RED BLOOD CELL COUNT 4.56 mill/uL (4.7-6.1); RED CELL DISTRIBUTION WIDTH 14.1 % (11.6-14.6)
[2021-09-23 20:00] VITALS: BP 100/58
[2021-09-23] MEDS: TRAZODONE HCL 50MG TABLET PO SCH (21:49)
[2021-09-23] MEDS: ATORVASTATIN CALCIUM 40MG TABLET PO SCH (21:49)
[2021-09-23] MEDS: RANOLAZINE 500 MG TAB.SR.12H PO SCH (21:50)
[2021-09-24] VITALS (7 sets, daily range): BP systolic 98–119; BP diastolic 51–76
[2021-09-24] MEDS: SODIUM CHLORIDE 0.9% INJ 3ML FLUSH IVF SCH ×2 (06:45→14:00)
[2021-09-24] MEDS: DIVALPROEX SODIUM 500MG DR TABLET PO SCH ×2 (09:00→17:00)
[2021-09-24] MEDS: METOPROLOL TARTRATE 25MG TABLET PO SCH (09:00)
[2021-09-24] MEDS: RANOLAZINE 500 MG TAB.SR.12H PO SCH (09:00)
[2021-09-24] MEDS: CLOPIDOGREL 75MG TABLET PO SCH (09:00)
[2021-09-24] MEDS: CITALOPRAM HYDROBROMIDE 10MG TABLET PO SCH (09:00)
[2021-09-24 09:02] LABS: CLARITY URINE CLEAR (CLEAR); COLOR URINE DARK YELLOW (YELLOW); KETONES URINE TRACE (NEGATIVE); LEUKOCYTE ESTERASE URINE NEGATIVE (NEGATIVE); NITRITE URINE NEGATIVE (NEGATIVE); OCCULT BLOOD URINE NEGATIVE (NEGATIVE); PH URINE 5.5 (4.5-8.0); PROTEIN URINE TRACE (NEGATIVE); SPECIFIC GRAVITY URINE 1.034 (1.005-1.030)
[2021-09-24] MEDS: ENOXAPARIN 80MG/0.8ML SYR SUBCUT SCH ×2 (10:24→21:57)
[2021-09-24 14:38] LABS: BG BASE EXCESS 4.6 mmol/L (-2.0-2.0); BG CARBOXYHEMOGLOBIN 0.4 % (0.5-1.5); BG DEOXYHEMOGLOBIN 1.1 % (0.0-5.0); BG FRACTION INSPIRED OXYGEN 28; BG HCO3 ACT 29.7 mmol/L (22.0-26.0); BG METHEMOGLOBIN 0.2 % (0.0-1.5); BG OXYGEN SATURATION 98.9 % (92.0-98.5); BG OXYHEMOGLOBIN 98.3 % (94.0-97.0); BG PCO2 45.3 mmHg (35.0-45.0); BG PH 7.434 (7.350-7.450); BG PO2 149.8 mmHg (75.0-100.0); BG SAMPLE SITE RIGHT BRACHIAL; BG TOTAL HEMOGLOBIN 14.5 g/dL (12.0-18.0); BG VENT MODE NASAL CANNULA
[2021-09-24 16:43] LABS: PROTHROMBIN TIME 10.9 sec (9.6-11.0)
[2021-09-24] MEDS ORDERED: BLOOD SUGAR DIAGNOSTIC STRIP TEST SCH (17:20)
[2021-09-24] MEDS: LEVOFLOXACIN 500MG PREMIX 100 ML IV SCH (17:56)
[2021-09-24] MEDS ORDERED: DEXT 5%/0.45% NACL 1000ML 1,000 ML IV SCH (18:00)
[2021-09-25] MEDS ORDERED: LEVOFLOXACIN 500MG TABLET PO SCH (11:00)
== END 2021-09-24 22:32 | disposition short-term general hospital (02) | DRG 45 ==
LOC: ER 17:03 → 6WST 22:28 → ENRESERV 09-21 07:27
PROVIDERS: ADMIT Internal Medicine; ATTEND Internal Medicine
DX: I63.511 Cerebral infarction due to unspecified occlusion or stenosis of right middle cerebral artery (principal); D68.59 Other primary thrombophilia; I82.431 Acute embolism and thrombosis of right popliteal vein; I51.3 Intracardiac thrombosis, not elsewhere classified; I69.354 Hemiplegia and hemiparesis following cerebral infarction affecting left non-dominant side; I50.22 Chronic systolic (congestive) heart failure; I11.0 Hypertensive heart disease with heart failure; I25.119 Atherosclerotic heart disease of native coronary artery with unspecified angina pectoris; Z95.1 Presence of aortocoronary bypass graft; E78.5 Hyperlipidemia, unspecified; F31.9 Bipolar disorder, unspecified; R00.1 Bradycardia, unspecified; Z20.822 Contact with and (suspected) exposure to COVID-19; Z79.82 Long term (current) use of aspirin; I25.2 Old myocardial infarction; Z95.5 Presence of coronary angioplasty implant and graft; Z79.899 Other long term (current) drug therapy; Z91.19 Patient's noncompliance with other medical treatment and regimen; Z79.02 Long term (current) use of antithrombotics/antiplatelets; Z86.718 Personal history of other venous thrombosis and embolism
CPT/HCPCS: 36415; 36600; 71045; 71275; 80053; 80061; 81003; 82375; 82550; 82553; 82805; 82962; 83036; 83880; 84439; 84443; 84484; 85025; 85379; 85384; 87426; 93005; 93306; 93970; 99285; J1650; J1956; J2270; J2405; J7040